=== PATIENT | male | born 1980 | race Caucasian/White ===

== ENCOUNTER 2018-07-04 08:09 | Day surgery (SDC) | payer OTHER ==
[~2018-07-04] VITALS: Ht 162.6 cm; Wt 63.5 kg
[2018-07-04] VITALS (13 sets, daily range): BP systolic 114–128; BP diastolic 66–84; PULSE 67–82; RESP 13–31; Ht 162.6 cm; Wt 63.5 kg
[~2018-07-04 08:09] MED LIST: CEFAZOLIN 2 GM/50 ML (PMX) 50 ML IVPB SCH; SOD CHLORIDE 0.9% 1,000 ML IV SCH
[2018-07-04] MEDS ORDERED: POLYMYXIN/BACITRACIN 1L IRRIG ONE (11:29)
[2018-07-04] MEDS ORDERED: BUPIVACAINE 0.25% (MPF) 30 ML INJ ONE (11:29)
--- NOTE | 2018-07-04 11:29 | PREAC ---
Date/Time of Note Date/Time of Note DATE: 07/04/18 TIME: 11:28 Anesthesia Eval and Record Evaluation Time Pre-Procedure Interview DATE: 07/04/18 TIME: 11:28 Age 37 Sex male NPO: 8 hrs Preoperative diagnosis ventral hernia incarcerated Planned procedure Lap incarcerated hernia repair Past Medical History Past Medical History: Includes Hepatic: Alcohol abuse, Hepatitis, Cirrhosis Surgery & Anesthesia Issues No known issue Meds Anticoagulation: No Beta Tracie within 24 hr: No Reason Beta Tracie not given: Pt. not on B-Tracie No Active Prescriptions or Reported Meds Current Medications Cefazolin Sodium/ Dextrose 50 ml @ 100 mls/hr PRE-OP IVPB ; Start 07/04/18 at 06:00; Stop 07/04/18 at 16:00 Sodium Chloride 1,000 ml @ 75 mls/hr [id number] IV ; Start 07/04/18 at 06:00; Stop 07/04/18 at 16:00 Meds reviewed: Yes Allergies Coded Allergies: No Known Drug Allergy (Verified Allergy, Unknown, 07/04/18) Allergies Reviewed: Yes Labs/Studies Labs Reviewed: Reviewed by anesthesiologist test: N/A Studies: ECG Pre-procedure Exam Last vitals Vital Signs Date Temp Pulse Resp B/P (MAP) Pulse Ox O2 O2 Flow FiO2 Time Delivery Rate 07/04/18 97.2 67 16 127/77 100 Room Air 09:06 (94) Airway: Adequate mouth opening, Adequate thyromental dist Mallampati: Mallampati II Teeth: Normal Lung: Normal Heart: Normal ASA Physical Status ASA physical status: 3 Emergency: None Planned Anesthetic General/MAC: ETT Nerve block: TAP (bilateral) Pre-operative Attestations Prior to commencing anesthesia and surgery, the patient was re-evaluated, there was verification of: *The patient's identity *The results of appropriate recent lab work and preoperative vital signs *The above evaluation not changing prior to induction *Anesthetic plan, risk benefits, alternative and complications discussed with patient/family; questions answered; patient/family understands, accepts and wishes to proceed. SHUBHAM MONTEIRO Jul 04, 2018 11:29
[2018-07-04] MEDS ORDERED: METOCLOPRAMIDE 10 MG INJ IV PRN (11:30)
[2018-07-04] MEDS ORDERED: ONDANSETRON 4 MG INJ IV PRN (11:30)
[2018-07-04] MEDS ORDERED: HYDROmorphONE 1 MG/5 ML IV SYRINGE IV PRN ×3 (11:30)
[2018-07-04] MEDS ORDERED: FENTAnyl 50 MCG/ML VIAL IV PRN ×3 (11:30)
[2018-07-04] MEDS ORDERED: MEPERIDINE 25 MG INJ IV PRN (11:30)
[2018-07-04] MEDS ORDERED: DIPHENHYDRAMINE 50 MG INJ IV PRN (11:30)
[2018-07-04] MEDS ORDERED: ALBUTEROL 0.083% (NEB) 2.5 MG/3 ML AMP HHN PRN (11:30)
[2018-07-04] MEDS ORDERED: ROPIVACAINE 0.5 % 30 ML VIAL ONE (11:54)
[2018-07-04] MEDS ORDERED: SUCCINYLCHOLINE CHLORIDE 100 MG/5 ML SYG IV ONE (11:54)
[2018-07-04] MEDS ORDERED: LIDOCAINE 2% (SDV) 5 ML INJ ONE (11:54)
[2018-07-04] MEDS ORDERED: DESFLURANE 15 MIN ONE (11:54)
[2018-07-04] MEDS ORDERED: FENTAnyl 50 MCG/ML VIAL ONE (11:54)
[2018-07-04] MEDS ORDERED: PROPOFOL 20 ML ONE (12:39)
[2018-07-04] MEDS ORDERED: NEOSTIGMINE 3 MG/3 ML SYRINGE ONE (12:39)
[2018-07-04] MEDS ORDERED: ROCURONIUM 50 MG INJ ONE (12:39)
[2018-07-04] MEDS ORDERED: GLYCOPYRROLATE 0.4 MG INJ ONE (12:39)
[2018-07-04] MEDS ORDERED: CEFAZOLIN 1 GM INJ ONE (12:39)
[2018-07-04] MEDS ORDERED: SUGAMMADEX SODIUM 200 MG/2 ML VIAL IV ONE (12:40)
--- NOTE | 2018-07-04 12:45 | OPR ---
Date/Time of Note Date/Time of Note DATE: 07/04/18 TIME: 12:42 Operative Report Procedure Date: Jul 04, 2018 Preoperative Diagnosis incarcerated ventral hernia Postoperative Diagnosis same Operation/Procedure Performed 1. laparoscopic incarcerated ventral hernia repair 2. implantation of polypropylene 15 x 15 cm mesh 3. laparoscopic peritoneal flap formation and coverage of the mesh Surgeon see signature line Injection Mold Technician Jakob Thompson Anesthesia Type: general Estimated Blood Loss: 10 - 50 ml's Transfusion none Specimen none Grafts/Implants none Complications none Pt Condition Post Procedure: stable Indications This is a 37-year-old male with an incarcerated ventral hernia. He requires surgical repair. Risks alternatives benefits and percent were discussed the patient. In particular due to his heavy history of alcohol use and cirrhosis. He was warned about his increased risk of infection and recurrence. Patient was also told never to resume alcohol consumption again. Ample time was given for questions and questions were all answered. Patient expresses understanding consents to the operation. Procedure Description Patient is taken to the OR and prepped and draped in usual sterile fashion. Surgical time was performed. IV antibiotics given. Left upper quadrant 5 mm transverse incision is made with a 15 blade. Using a 5 mm optical trocar optical entry is performed. Pneumoperitoneum is established. Left flank 12 mm optical trochars placed under direct position. Left lower quadrant 5 mm optical trochars placed under direct visualization. Upon initial inspection there is incarcerated hernia contents to the ventral aspect. Laparoscopic lysis of adhesions was performed. Additional laparoscopic peritoneal flap is developed. This was taken down all the way to the area of the low abdomen. The incarcerated hernia was identified and using laparoscopic harmonic the lysis of adhesions was performed. This allowed mobilization and reduction of the hernia. The hernia defect is identified the fascial edges were freshened. Using a #1 Vicryl interrupted sutures were placed using Endo Close and laparoscopic techniques. After primary closure of the defect underlay mesh with 15 x 15 cm polypropylene mesh was cut to fashion to cover the defect. Approximate 4-5 centers of coverage in all directions was maintained. The peritoneal flap was then reapproximated against the intra-abdominal wall to cover the mesh partially. This was all done with secure strap. Good hemostasis was established the surgical bed. All ports removed under direct position. Skin was closed with skin oscar. A tap block was provided by the anesthesiologist. Dry dressings were applied. Jono HOUSE Jul 04, 2018 12:45
[2018-07-04] MEDS ORDERED: HYDROCODONE/APAP (5/325) TAB PO ONE (13:00)
--- NOTE | 2018-07-04 13:44 | PAC ---
Date/Time of Note Date/Time of Note DATE: 07/04/18 TIME: 13:44 Post-Anesthesia Notes Post-Anesthesia Note Last documented vital signs Vital Signs Date Temp Pulse Resp B/P (MAP) Pulse Ox O2 O2 Flow FiO2 Time Delivery Rate 07/04/18 72 15 114/71 97 13:26 (85) 07/04/18 Room Air 13:16 07/04/18 98.2 6.0 12:56 Activity: WNL Respiratory function: WNL Cardiovascular function: WNL Mental status: Baseline Pain reasonably controlled: Yes Hydration appropriate: Yes Nausea/Vomiting absent: Yes SHUBHAM MONTEIRO Jul 04, 2018 13:44
== END 2018-07-04 15:00 | disposition home or self-care (01) ==
LOC: SDS 08:09
PROVIDERS: ATTEND Surgery
DX: K43.6 Other and unspecified ventral hernia with obstruction, without gangrene (principal)
CPT/HCPCS: 49653; J0690; J1170; J2175; J2405; J2795; J3010; Z7512; Z7610; J2710